=== PATIENT | female | born 1950 | race Caucasian/White ===

== ENCOUNTER 2018-09-19 06:22 | Day surgery (SDC) | payer MEDICARE, BC ==
[~2018-09-19 06:22] MED LIST: Lactated Ringers 1,000 ML IV SCH; Lidocaine 1%/Sod Bicarbonate in NS 8.4% 1 ML Syringe IDERM PRN; Sodium Chloride 0.9% 10 ML Syringe FLUSH PRN
[2018-09-19] MEDS ORDERED: Propofol 200 MG/20 ML SDV ONE (06:47)
[2018-09-19] MEDS ORDERED: fentaNYL 100 MCG/2 ML SDV ONE (06:47)
[2018-09-19] MEDS ORDERED: Lidocaine 1% 4 ML ONE (06:47)
--- NOTE | 2018-09-19 07:09 | PCM.PREANE ---
Preanesthetic Assessment - Procedure Proposed Procedure: Diagnostic colonoscopy - Anesthesia/Transfusion/Family Hx Anesthesia History: Prior Anesthesia Without Reaction Family History of Anesthesia Reaction: No Transfusion History: No Prior Transfusion(s) - Review of Systems General: No Symptoms Pulmonary: Other (ANANYA- does not use CPAP. Patient has lost over [address] Abdullahi Munoz told her she does not need to use it anymore ) Cardiovascular: Other (HX of ID, HTN, irregular heartbeat ) Gastrointestinal: No Symptoms Neurological: No Symptoms Other: Reports: None, Thyroid Problems (hypothyroidism ) - Physical Assessment NPO Status Date: 09/18/18 NPO Status Time: 21:00 Pulse: 87 O2 Sat by Pulse Oximetry: 96 Respiratory Rate: 20 Blood Pressure: 171/93 (patient did not take BP med t his am) Temperature: 36.8 C Height: 1.57 m Weight: 102 kg ASA Class: 3 Mental Status: Alert & Oriented x3 Airway Class: Mallampati = 2 Dentition: Reports: Missing Tooth/Teeth (multiple missing teeth upper and lower , nothing missing in the front) Thyro-Mental Finger Breadths: 3 Mouth Opening Finger Breadths: 3 ROM/Head Extension: Full Lungs: Clear to Auscultation, Normal Respiratory Effort Cardiovascular: Regular Rate, Regular Rhythm - Lab Values: Laboratory Last Values WBC 7.56 K/mm3 (3.98-10.04) 09/19/18 06:54 RBC 4.98 M/mm3 (3.98-5.22) 09/19/18 06:54 Hgb 14.8 gm/L (11.2-15.7) 09/19/18 06:54 Hct 43.5 % (34.1-44.9) 09/19/18 06:54 MCV 87.3 fl (79.4-94.8) 09/19/18 06:54 MCH 29.7 pg (25.6-32.2) 09/19/18 06:54 MCHC 34.0 g/dl (32.2-35.5) 09/19/18 06:54 RDW Std Deviation 43.3 fL (36.4-46.3) 09/19/18 06:54 Plt Count 208 K/mm3 (182-369) 09/19/18 06:54 MPV 9.2 fl (9.4-12.3) L 09/19/18 06:54 Neut % (Auto) 62.5 % (34.0-71.1) 09/19/18 06:54 Lymph % (Auto) 25.7 % (19.3-51.7) 09/19/18 06:54 Jackson % (Auto) 7.9 % (4.7-12.5) 09/19/18 06:54 Eos % (Auto) 3.4 (0.7-5.8) 09/19/18 06:54 Baso % (Auto) 0.4 % (0.1-1.2) 09/19/18 06:54 Neut # (Auto) 4.72 K/mm3 (1.56-6.13) 09/19/18 06:54 Lymph # (Auto) 1.94 K/mm3 (1.18-3.74) 09/19/18 06:54 Jackson # (Auto) 0.60 K/mm3 (0.24-0.36) H 09/19/18 06:54 Eos # (Auto) 0.26 K/mm3 (0.04-0.36) 09/19/18 06:54 Baso # (Auto) 0.03 K/mm3 (0.01-0.08) 09/19/18 06:54 - Allergies Allergies/Adverse Reactions: Allergies Allergy/AdvReac Type Severity Reaction Status Date / Time calcipotriene Allergy Rash Verified 09/18/18 11:40 clobetasol Allergy Rash Verified 09/18/18 11:40 codeine Allergy Itching Verified 09/18/18 11:40 triamcinolone [From Kenalog] Allergy Rash Verified 09/18/18 11:40 amoxicillin [From Augmentin] AdvReac Syncope Verified 09/18/18 12:48 cephalexin AdvReac Syncope Verified 09/18/18 12:48 clavulanic acid AdvReac Syncope Verified 09/18/18 12:48 [From Augmentin] clindamycin AdvReac Syncope Verified 09/18/18 12:48 dextromethorphan AdvReac Other Verified 09/18/18 12:48 [From Mucinex Cough] guaifenesin AdvReac Other Verified 09/18/18 12:48 [From Mucinex Cough] - Blood Blood Available: No Product(s) Available: None - Anesthesia Plan Pre-Op Medication Ordered: None - Acknowledgements Anesthesia Type Planned: MAC Pt an Appropriate Candidate for the Planned Anesthesia: Yes Alternatives and Risks of Anesthesia Discussed w Pt/Guardian: Yes Pt/Guardian Understands and Agrees with Anesthesia Plan: Yes PreAnesthesia Questionnaire HEENT History: Reports: Impaired Vision Cardiovascular History: Reports: Heart Murmur, Hypertension, ID, Other (See Below) Other Cardiovascular History: Cardiac Dysrhythmia Respiratory History: Reports: Sleep Apnea, Other (See Below) Other Respiratory History: Patient had sleep apnea in the past with use of CPAP , but she has lost over 100 pounds that resolved sleep apnea Gastrointestinal History: Reports: None Genitourinary History: Reports: None INCIDENT RESPONSE SPECIALIST History: Reports: None Musculoskeletal History: Reports: Arthritis Neurological History: Reports: None Psychiatric History: Reports: None Endocrine/Metabolic History: Reports: Hypothyroidism, Obesity/BMI 30+ Hematologic History: Reports: None Immunologic History: Reports: None Oncologic (Cancer) History: Reports: None Dermatologic History: Reports: Other (See Below) Other Dermatologic History: Chronic rash with unknown etiology - Infectious Disease History Infectious Disease History: Reports: None - Past Surgical History Head Surgeries/Procedures: Reports: None HEENT Surgical History: Reports: Tonsillectomy Cardiovascular Surgical History: Reports: None Respiratory Surgical History: Reports: None GI Surgical History: Reports: None Female Surgical History: Reports: None Endocrine Surgical History: Reports: None Neurological Surgical History: Reports: None Musculoskeletal Surgical History: Reports: None Oncologic Surgical History: Reports: None - SUBSTANCE USE Smoking Status *Q: Former Smoker Second Hand Smoke Exposure: No Recreational Drug Use History: No - HOME MEDS Home Medications: Home Meds Albuterol Sulfate [Proair Respiclick] 2 puff IH Q4H PRN 09/18/18 [History] Arthriflex Advantage 2 tab PO DAILY 09/18/18 [History] Arthro-Complex 1 tab PO TID 09/18/18 [History] Ascorbate Calcium [Vitamin C] 1,000 mg PO DAILY 09/18/18 [History] Aspirin [Halfprin] 81 mg PO DAILY 09/18/18 [History] Cholecalciferol (Vitamin D3) [Vitamin D3] 3,000 units PO DAILY 09/18/18 [History ] Cinnamon Bark [Cinnamon] 1,000 mg PO DAILY 09/18/18 [History] Cyanocobalamin (Vitamin B12) [Vitamin B12] 1,000 mcg PO DAILY 09/18/18 [History] Krill Oil 2 tab PO DAILY 09/18/18 [History] Levothyroxine [Sythroid] 100 mcg PO DAILY 09/18/18 [History] Loratadine 10 mg PO DAILY PRN 09/18/18 [History] Naproxen Sodium [Aleve] 440 mg PO BEDTIME 09/18/18 [History] Ramipril 10 mg PO DAILY 09/18/18 [History] S-Adenosylmethionine Sul Tosyl [Mark-E] 1,200 mg PO DAILY 09/18/18 [History] Tumeric 1,000 mg PO DAILY 09/18/18 [History] Ubidecarenone [Co Q-10] 100 mg PO DAILY 09/18/18 [History] Vitamin B Complex [B Complex] 2 tab PO DAILY 09/18/18 [History] Vitamin E 400 unit PO DAILY 09/18/18 [History] acetaZOLAMIDE [Diamox] 250 mg PO MOWEFR 09/18/18 [History] - CURRENT (IN HOUSE) MEDS Current Meds: Current Medications Lactated Ringer's (Ringers, Lactated) 1,000 mls @ 125 mls/hr IV ASDIRECTED HEIDY Stop: 09/19/18 23:00 Lidocaine/Sodium Bicarbonate (Buffered Lidocaine 1% In Ns 8.4%) 0.25 ml IDERM ONETIME PRN PRN Reason: Prior to IV Start Stop: 09/19/18 18:00 Sodium Chloride (Saline Flush) 10 ml FLUSH ASDIRECTED PRN PRN Reason: Keep Vein Open Stop: 09/19/18 18:00 Discontinued Medications Fentanyl (Sublimaze) Confirm Administered Dose 100 mcg .ROUTE .STK-MED ONE Stop: 09/19/18 06:48 Lidocaine HCl (Xylocaine-Mpf 1%) Confirm Administered Dose 4 mls @ as directed .ROUTE .STK-MED ONE Stop: 09/19/18 06:48 Propofol (Diprivan 20 Ml) Confirm Administered Dose 200 mg .ROUTE .STK-MED ONE Stop: 09/19/18 06:48
--- NOTE | 2018-09-19 08:20 | PCM48HPAN ---
Post Anesthesia Note - EVALUATION WITHIN 48HRS OF ANESTHETIC Vital Signs in Normal Range: Yes Patient Participated in Evaluation: Yes Respiratory Function Stable: Yes Airway Patent: Yes Cardiovascular Function Stable: Yes Hydration Status Stable: Yes Pain Control Satisfactory: Yes Nausea and Vomiting Control Satisfactory: Yes Mental Status Recovered: Yes Pulse Rate: 66 SaO2: 93 Resp Rate: 16 Temperature: 36.5 C Blood Pressure: 122/73
--- NOTE | 2018-09-19 08:24 | PCM.OPNOTE ---
- General Post-Op/Procedure Note Date of Surgery/Procedure: 09/19/18 Operative Procedure(s): Colonoscopy with cold forceps biopsy Findings: Diverticulosis of sigmoid colon, sigmoid polyps x 3, internal hemorrhoids Pre Op Diagnosis: Positive DNA Fecal based stool testing Post-Op Diagnosis: Diverticulosis sigmoid colon, sigmoid polyps x 3, internal hemorrhoids Anesthesia Technique: MAC Primary Surgeon: Dany Land Anesthesia Provider: Jimmie Asencio EBL in mLs: 5 Complications: None Condition: Good Free Text/Narrative:: After the patient gave verbal and written consent she was placed on blood pressure and pulse ox monitoring. SHe was given IV sedation which she tolerated well. The olympus colonscope was inserted per rectum and advanced to the cecum without difficulty. The ileocecal valve and appendiceal orfice were imaged documenting cecal intubation. The scope was slowly withdrawn and mucosal surfaces carefully examined. The prep was good. The views were good. Sigmoid diverticulosis was noted. 3 x 2-4 mm sigmoid polyps were noted and removed with cold forceps biopsy. There was good hemostasis. The scope was then retroflexed in the rectum and internal hemorrhoids were noted. The scope was then removed. THere were no complications and the patient left the endoscopy suite in good condition.
== END 2018-09-19 09:28 | disposition home or self-care (01) ==
LOC: JD.SDS 06:22
PROVIDERS: ATTEND Family Medicine
DX: R19.5 Other fecal abnormalities (principal); D12.5 Benign neoplasm of sigmoid colon; K64.8 Other hemorrhoids; K57.30 Diverticulosis of large intestine without perforation or abscess without bleeding; I10 Essential (primary) hypertension; E66.01 Morbid (severe) obesity due to excess calories; Z68.41 Body mass index [BMI] 40.0-44.9, adult; E03.9 Hypothyroidism, unspecified; G47.33 Obstructive sleep apnea (adult) (pediatric); Z87.891 Personal history of nicotine dependence; Z79.82 Long term (current) use of aspirin; Z79.899 Other long term (current) drug therapy; Z88.1 Allergy status to other antibiotic agents; Z88.8 Allergy status to other drugs, medicaments and biological substances; Z88.5 Allergy status to narcotic agent
CPT/HCPCS: 36415; 45380; 80048; 85025; J2001; J2704; J3010; J7120

== ENCOUNTER 2022-12-17 09:18 | Day surgery (SDC) | payer MEDICARE, BC ==
[~2022-12-17 09:18] MED LIST changes: +Bupivacaine 0.25% 10 ML SDV ONE; +Morphine 8 MG, EPINEPHrine 0.3 MG, Cefuroxime 750 MG, Ketorolac 30 MG, Sodium Chloride ... PRN; +Sodium Chloride 0.9% 10 ML Syringe FLUSH SCH; +Tranexamic Acid 1,000 MG/10 ML Vial ONE; +Triamcinolone Acetonide 40 MG/ML 1 ML SDV ONE; +Vancomycin 1 GM SDV ONE
[2022-12-17] MEDS ORDERED: Midazolam 1 MG/ML 2 ML SDV ONE (10:18)
[2022-12-17] MEDS ORDERED: fentaNYL 100 MCG/2 ML SDV ONE (10:18)
[2022-12-17] MEDS ORDERED: Propofol 200 MG/20 ML SDV ONE ×2 (10:36→11:15)
[2022-12-17] MEDS ORDERED: Lidocaine 1% 2 ML ONE (10:37)
[2022-12-17] MEDS ORDERED: ceFAZolin 2 GM Vial ONE (10:46)
[2022-12-17] MEDS ORDERED: Phenylephrine 1% 10 MG/ML SDV ONE (11:00)
[2022-12-17] MEDS ORDERED: EPINEPHrine 1 MG/ML SDV ONE (12:17)
[2022-12-17] MEDS ORDERED: Ropivacaine 0.5% 5 MG/ML 30 ML SDV ONE (12:17)
[2022-12-17] MEDS ORDERED: fentaNYL 100 MCG/2 ML SDV IVPUSH PRN (12:36)
[2022-12-17] MEDS ORDERED: Ondansetron 4 MG/2 ML SDV IVPUSH PRN (12:36)
[2022-12-17] MEDS ORDERED: Acetaminophen/HYDROcodone 325-5 MG Tab PO STA (13:12)
[2022-12-17] MEDS ORDERED: Cyclobenzaprine 10 MG Tab PO SCH (13:45)
== END 2022-12-17 15:40 | disposition home or self-care (01) ==
LOC: JD.SDS 09:18
PROVIDERS: ATTEND Orthopaedic Surgery
DX: M17.0 Bilateral primary osteoarthritis of knee (principal); I44.7 Left bundle-branch block, unspecified; I25.10 Atherosclerotic heart disease of native coronary artery without angina pectoris; E03.9 Hypothyroidism, unspecified; E66.01 Morbid (severe) obesity due to excess calories; I10 Essential (primary) hypertension; J44.9 Chronic obstructive pulmonary disease, unspecified; G47.33 Obstructive sleep apnea (adult) (pediatric); Z68.38 Body mass index [BMI] 38.0-38.9, adult; Z88.1 Allergy status to other antibiotic agents; Z88.5 Allergy status to narcotic agent; Z88.8 Allergy status to other drugs, medicaments and biological substances; Z79.899 Other long term (current) drug therapy; Z79.890 Hormone replacement therapy; Z87.891 Personal history of nicotine dependence; R01.1 Cardiac murmur, unspecified; Z90.89 Acquired absence of other organs; Z79.82 Long term (current) use of aspirin
CPT/HCPCS: 0055T; 27447; 64447; 73560; 97116; 97161; A9270; C1713; C1776; J0171; J0690; J0697; J1885; J2250; J2270; J2370; J2405; J2704; J2795; J3010; J3301; J3370; J3490; J7120; 01402; 99100

== ENCOUNTER 2023-12-16 06:00 | Day surgery (SDC) | payer MEDICARE, BC ==
[2023-12-16 06:02] LABS: BASOPHILS ABSOLUTE AUTO 0.1 K/mm3 (0.0-0.2); BASOPHILS PERCENT AUTO 0.7 % (0.0-1.0); EOSINOPHILS ABSOLUTE AUTO 0.3 K/mm3 (0.0-0.4); EOSINOPHILS PERCENT AUTO 4.2 % (0.0-6.0); HEMOGLOBIN 13.9 gm/dl (12.0-16.0); IMMATURE GRAN ABSOLUTE AUTO 0.03 K/mm3 (0.00-0.05); IMMATURE GRAN PERCENT AUTO 0.4 % (0.0-0.4); LYMPHOCYTES ABSOLUTE AUTO 3.2 K/mm3 (1.0-4.8); LYMPHOCYTES PERCENT AUTO 42.8 % (24.0-44.0); MEAN CORPUSCULAR HEMOGLOBIN 30.3 pg (28.0-32.0); MEAN CORPUSCULAR HGB CONC 34.8 g/dl (32.0-36.0); MEAN CORPUSCULAR VOLUME 87.3 fl (83.0-99.0); MEAN PLATELET VOLUME 8.4 fl (9.4-12.3); MONOCYTES ABSOLUTE AUTO 0.7 K/mm3 (0.0-0.8); MONOCYTES PERCENT AUTO 9.8 % (0.0-8.0); NEUTROPHILS ABSOLUTE AUTO 3.2 K/mm3 (1.8-7.7); NEUTROPHILS PERCENT AUTO 42.1 % (41.0-71.0); PLATELET COUNT,PLT 195 K/mm3 (150-400); RED BLOOD CELL COUNT 4.58 M/mm3 (4.10-5.30); WHITE BLOOD CELL COUNT,WBC 7.46 K/mm3 (3.9-11.3)
[2023-12-16] MEDS ORDERED: Midazolam 1 MG/ML 2 ML SDV ONE (06:35)
[2023-12-16] MEDS ORDERED: ceFAZolin 2 GM Vial ONE (06:35)
[2023-12-16] MEDS ORDERED: Propofol 200 MG/20 ML SDV ONE (06:35)
[2023-12-16] MEDS ORDERED: dexmedeTOMIDine HCl 200 MCG/2 ML SDV ONE (06:40)
[2023-12-16] MEDS ORDERED: Ropivacaine 0.5% 5 MG/ML 30 ML SDV ONE (06:40)
[2023-12-16] MEDS ORDERED: EPINEPHrine 1 MG/ML SDV ONE (06:40)
[2023-12-16] MEDS ORDERED: Lactated Ringers 1,000 ML IV SCH (06:45)
[2023-12-16] MEDS ORDERED: Lidocaine 1% 2 ML ONE (07:46)
[2023-12-16] MEDS ORDERED: fentaNYL 250 MCG/5 ML SDV ONE (07:56)
[2023-12-16] MEDS ORDERED: ePHEDrine 50 MG/ML SDV ONE (08:06)
[2023-12-16] MEDS ORDERED: Rocuronium 50 MG/5 ML Vial ONE (08:07)
[2023-12-16] MEDS ORDERED: Ondansetron 4 MG/2 ML SDV ONE (08:07)
[2023-12-16] MEDS ORDERED: HYDROmorphone 0.5 MG/0.5 ML Syringe ONE (08:10)
[2023-12-16] MEDS ORDERED: Lactated Ringers 1,000 ML ONE (08:30)
[2023-12-16] MEDS: Tranexamic Acid 1,000 MG/10 ML Vial ONE (08:33)
[2023-12-16] MEDS: Vancomycin 1 GM SDV ONE (08:34)
[2023-12-16] MEDS: Morphine 8 MG, EPINEPHrine 0.3 MG, Cefuroxime 750 MG, Ketorolac 30 MG, Sodium Chloride ... PRN (08:34)
[2023-12-16] MEDS ORDERED: Ketamine 200 MG/20 ML MDV ONE (08:36)
[2023-12-16] MEDS ORDERED: HYDROmorphone 0.5 MG/0.5 ML Syringe IVPUSH PRN (08:45)
[2023-12-16] MEDS ORDERED: Ondansetron 4 MG/2 ML SDV IVPUSH PRN (08:45)
[2023-12-16] MEDS ORDERED: fentaNYL 100 MCG/2 ML SDV IVPUSH PRN (08:45)
[2023-12-16] MEDS ORDERED: Sugammadex Sodium 200 MG/2 ML VIAL IV ONE (09:07)
[2023-12-16] MEDS ORDERED: Labetalol 100 MG/20 ML MDV ONE (09:25)
[2023-12-16] MEDS ORDERED: fentaNYL 100 MCG/2 ML SDV ONE (09:36)
[2023-12-16] MEDS: Acetaminophen/HYDROcodone 325-5 MG Tab PO PRN (11:45)
== END 2023-12-16 13:05 | disposition home or self-care (01) ==
LOC: JD.SDS 06:00
PROVIDERS: ATTEND Orthopaedic Surgery
DX: M17.12 Unilateral primary osteoarthritis, left knee (principal); I10 Essential (primary) hypertension; E03.9 Hypothyroidism, unspecified; I44.7 Left bundle-branch block, unspecified; E66.01 Morbid (severe) obesity due to excess calories; Z87.891 Personal history of nicotine dependence; Z79.890 Hormone replacement therapy; Z79.899 Other long term (current) drug therapy; Z88.0 Allergy status to penicillin; Z88.5 Allergy status to narcotic agent; Z88.1 Allergy status to other antibiotic agents
CPT/HCPCS: 0055T; 27447; 36415; 64447; 73560; 85025; 97110; 97161; A9270; C1713; C1776; J0171; J0690; J0697; J1170; J1885; J1921; J2250; J2270; J2405; J2704; J2795; J3010; J3370; J3490; J7120; 01402; 99100